=== PATIENT | female | born 1935 | race Caucasian/White ===

== ENCOUNTER 2017-07-30 11:30 | Emergency (ER) | payer OTHER ==
[~2017-07-30] VITALS: Ht 167.6 cm; Wt 86.2 kg
[~2017-07-30 11:30] MED LIST: CARVEDILOL12.5 MG PO; ELIQUIS2.5 MG PO; LISINOPRIL10 MG PO; NIFEDIPINE ER60 M1 PO; SORINE 80 MG TA80 M1 PO; XARELTO20 MG PO
[2017-07-30 12:10] LABS: URINE BILIRUBIN 2+ (Negative); URINE BLOOD 3+ (Negative); URINE CLARITY CLOUDY; URINE COLOR BROWN; URINE GLUCOSE-RANDOM NEGATIVE (Negative); URINE KETONES NEGATIVE (Negative); URINE LEUKOCYTES-REFLEX 2+ (Negative); URINE NITRITE-REFLEX POSITIVE (Negative); URINE PROTEIN 3+ (Negative); URINE SPECIFIC GRAVITY 1.025 (1.005-1.030)
[2017-07-30 12:11] LABS: ICTOTEST (BILI CONFIRMATORY) Negative (Negative)
[2017-07-30 12:14] LABS: BACTERIA-REFLEX >30 Many /HPF (None Seen); CASTS None Seen /LPF (None Seen); CRYSTALS None Seen /LPF (None Seen); SQUAMOUS 4-10 Moderate /LPF (0-3); URINE RBC >20 Many /HPF (0-2)
[2017-07-30] MEDS ORDERED: BACTRIM DS TAB1 EACH PO (12:14)
[2017-07-30 12:24] VITALS: BP 170/94
== END 2017-07-30 12:29 | disposition home or self-care (01) ==
LOC: M.ERS 11:30
PROVIDERS: Emergency Medicine Emergency Medical Services
DX: N30.80 Other cystitis without hematuria (principal); I10 Essential (primary) hypertension; Z90.49 Acquired absence of other specified parts of digestive tract; Z90.710 Acquired absence of both cervix and uterus; Z85.828 Personal history of other malignant neoplasm of skin

== ENCOUNTER → 2018-10-13 | Outpatient (CLI) | payer OTHER ==
[2018-10-13] VITALS (7 sets, daily range): BP systolic 156–165; BP diastolic 92–105
[~2018-10-13] MED LIST changes: +BACTRIM DS TAB1 EACH PO; +ELIQUIS5 MG PO
--- NOTE | ~2018-10-13 | CARD ---
[address] [address] CARDIAC CATH REPORT Name: ADRIANO AUGUST Room: [facility]#: [id number] Admission: 10/13/18 Attend Phys: Bart Knight MD Discharge: Date of : 39 Report #: [id number] THIS REPORT FOR: //name// CC: RADHA Knight Physician staff PROCEDURE: DC cardioversion. INDICATION: Persistent atrial flutter. DESCRIPTION OF PROCEDURE: After informed consent was obtained, the patient was brought to the cardiac holding area. The initial EKG showed atrial flutter with ventricularly paced rhythm. The patient was given intravenous Versed and fentanyl for adequate sedation. Once the patient was adequately sedated, she received a single biphasic shock of 300 joules, converting to sinus rhythm with ventricular pacing. The patient tolerated the procedure well, without complication. IMPRESSION: 1. Persistent atrial flutter. 2. Successful direct current cardioversion to sinus rhythm. By: 1133 [id number] Samreen Knight MD, [facility] /nt
[2018-10-13 10:19] LABS: HEMATOCRIT 45.8 % (37.0-47.0); HEMOGLOBIN 15.1 gm/dL (12.0-15.0); MCH 30.8 pg (26.0-34.0); MCHC 32.9 g/dL (28.0-37.0); MCV 93.7 fL (80.0-100.0); MPV 9.8 fl. (7.2-11.1); RBC 4.89 mil/uL (4.20-5.00); RDW-CV 15.7 % (10.5-14.5); WBC 7.1 thou/uL (4.0-11.0)
[2018-10-13 10:30] LABS: CALCIUM 8.9 mg/dL (8.5-10.1)
[2018-10-13 10:35] LABS: ALBUMIN 3.6 g/dL (3.4-5.0); TOTAL BILIRUBIN 1.2 mg/dL (<0.1-1.0)
--- NOTE | 2018-10-13 15:38 | EKG ---
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
--- NOTE | 2018-10-13 15:38 | EKG ---
[place] [address] ELECTROCARDIOGRAM REPORT Name: ADRIANO AUGUST Room: 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1935 Requested By: Bart Knight Order Number: [id number] Reading MD: Bart Knight Measurements Intervals [place] Rate: 64 P: 67 AR: 172 QRS: 265 QRSD: 186 T: 107 QT: 531 QTc: 548 Interpretive Statements Ventricular-paced complexes No further analysis attempted due to paced rhythm Compared to ECG 05/15/2017 08:19:11 Atrial fibrillation no longer present Electronically Signed On 10-13-2018 15:38:48 CDT by Bart Knight [email or web address] <ELECTRONICALLY SIGNED> By: Bart Knight MD, [facility] 10/13/18 1538 1041 1041 Bart Knight MD, FACC /EPI
== END | disposition home or self-care (01) ==
LOC: M.CL 09:50
PROVIDERS: Internal Medicine Cardiovascular Disease
DX: I48.92 Unspecified atrial flutter (principal); I10 Essential (primary) hypertension; Z79.01 Long term (current) use of anticoagulants; Z79.899 Other long term (current) drug therapy; Z85.828 Personal history of other malignant neoplasm of skin; Z90.710 Acquired absence of both cervix and uterus; Z90.49 Acquired absence of other specified parts of digestive tract; Z95.0 Presence of cardiac pacemaker

== ENCOUNTER → 2019-08-16 | Outpatient (CLI) | payer OTHER ==
[~2019-08-16] MED LIST changes: +CARDIZEM SR 60M60 MG PO; +LORTAB 5/325 PO; +PROCARDIA XL60 MG PO
[2019-08-16 11:57] VITALS: BP 162/95
[2019-08-16 12:09] LABS: HEMATOCRIT 43.8 % (37.0-47.0); HEMOGLOBIN 14.6 gm/dL (12.0-15.0); MCHC 33.3 g/dL (28.0-37.0); MCV 93.4 fL (80.0-100.0); MPV 9.4 fl. (7.2-11.1); RBC 4.69 mil/uL (4.20-5.00); RDW-CV 15.8 % (10.5-14.5); WBC 6.7 thou/uL (4.0-11.0)
[2019-08-16 12:16] VITALS: BP 161/99
[2019-08-16 12:17] LABS: ANION GAP 9 mmol/L (7-16); BUN 26 mg/dL (7-18); CALCIUM 8.8 mg/dL (8.5-10.1); CHLORIDE 108 mmol/L (98-107); CO2 27 mmol/L (21-32); GLUCOSE 106 mg/dL (70-99); POTASSIUM 3.9 mmol/L (3.5-5.1); SODIUM 144 mmol/L (136-145)
[2019-08-16 12:18] LABS: APTT 30.1 Seconds (25.0-31.3); INR 1.2; PROTIME 12.4 Seconds (9.20-11.50)
[2019-08-16 12:20] VITALS: BP 155/94
[2019-08-16 12:22] LABS: ALBUMIN 3.9 g/dL (3.4-5.0); ALKALINE PHOSPHATASE 48 U/L (46-116); CHOLESTEROL 122 mg/dL (<200); HDL CHOLESTEROL 42 mg/dL (>40); LDL CHOLESTEROL 65 mg/dL (<100); SGOT 33 U/L (15-37); SGPT 53 U/L (30-65); TC:HDL 2.9 Ratio (Not establshd); TOTAL BILIRUBIN 1.3 mg/dL (<0.1-1.0); TOTAL PROTEIN 7.3 g/dL (6.4-8.2); TRIGLYCERIDE 77 mg/dL (<150); VLDL 15 mg/dL (<40)
[2019-08-16 12:25] LABS: SERUM ASSESSMENT Clear
[2019-08-16 12:36] VITALS: BP 147/88
[2019-08-16 13:07] VITALS: BP 135/79
== END | disposition home or self-care (01) ==
LOC: M.CL 11:00
PROVIDERS: Internal Medicine Cardiovascular Disease
DX: I48.91 Unspecified atrial fibrillation (principal); Z79.01 Long term (current) use of anticoagulants; Z79.899 Other long term (current) drug therapy; Z98.890 Other specified postprocedural states

== ENCOUNTER → 2019-10-21 | Outpatient (CLI) | payer OTHER ==
[2019-10-21] VITALS (8 sets, daily range): BP systolic 136–158; BP diastolic 71–95
[~2019-10-21] MED LIST changes: +KLOR-CON 1010 MEQ PO; +LASIX 20 MG TAB20 MG PO
[2019-10-21 14:23] LABS: ALBUMIN 3.7 g/dL (3.4-5.0); DIRECT BILIRUBIN 0.2 mg/dL (<0.1-0.3); TOTAL BILIRUBIN 0.9 mg/dL (<0.1-1.0); TOTAL PROTEIN 6.7 g/dL (6.4-8.2)
--- NOTE | 2019-10-21 15:15 | CARD ---
[address] [address] CARDIAC CATH REPORT Name: ADRIANO AUGUST Naty Room: [facility]#: [id number] Admission: 10/21/19 Attend Phys: Bart Knight MD Discharge: Date of : 39 Report #: [id number] THIS REPORT FOR: //name// cc: CARROLL URIBE DO Physician not on staff ~ CC: CARROLL Knight Physician staff DATE OF SERVICE: 10/21/2019 PROCEDURE: Direct current cardioversion. INDICATION: Persistent atrial flutter/fibrillation. DESCRIPTION OF PROCEDURE: After informed consent was obtained, the patient was brought to the cardiac holding area. The patient was noted to be in atrial flutter with variable AV conduction. The patient was given 75 mg of intravenous fentanyl and 3 mg of intravenous Versed for conscious sedation. Once the patient was adequately sedated, she received a single biphasic shock of 300 joules. With this, she failed to convert to sinus rhythm. The patient received a second biphasic shock of 360 joules converting to normal sinus rhythm. The patient tolerated the procedure well without complication. IMPRESSION: 1. Persistent atrial fibrillation/flutter. 2. Successful direct current cardioversion to normal sinus rhythm. <ELECTRONICALLY SIGNED> By: Bart Knight MD, [facility] 10/21/19 1515 1426 1428[place] Samreen Knight MD, FACC /nt
--- NOTE | 2019-10-21 16:18 | EKG ---
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1935 Requested By: Bart Knight Order Number: [id number] Reading MD: Zain Hodgson Measurements Intervals [place] Rate: 66 P: 14 VA: 287 QRS: -62 QRSD: 188 T: 161 QT: 499 QTc: 523 Interpretive Statements Sinus rhythm supraventricular premature complex Prolonged VA interval Left bundle branch block Compared to ECG 10/13/2018 10:41:16 Ventricular-paced complex(es) or rhythm no longer present Electronically Signed On 10-21-2019 16:16:19 CDT by Zain Hodgson [email or web address] <ELECTRONICALLY SIGNED> By: Zain Hodgson MD, [facility] 10/21/19 1616 1226 1226 Zain Hodgson MD, [facility] /EPI
== END | disposition home or self-care (01) ==
LOC: M.CL 11:00
PROVIDERS: Internal Medicine Cardiovascular Disease
DX: I48.19 Other persistent atrial fibrillation (principal); I48.92 Unspecified atrial flutter; Z98.890 Other specified postprocedural states; Z79.01 Long term (current) use of anticoagulants; Z79.899 Other long term (current) drug therapy

== ENCOUNTER → 2020-04-04 | Outpatient (CLI) | payer OTHER ==
[2020-04-04] VITALS (9 sets, daily range): BP systolic 114–157; BP diastolic 73–93
--- NOTE | ~2020-04-04 | CARD ---
[facility] [address] [place] [address] CARDIAC CATH REPORT Name: ADRIANO AUGUST Room: [facility]#: [id number] Admission: 04/04/20 Attend Phys: Bart Knight MD Discharge: Date of : 39 Report #: [id number] THIS REPORT FOR: //name// cc: Trav Mcneill Jayme DO ~ CC: Trav Pablo DATE OF SERVICE: 04/04/2020 PROCEDURE: Direct current cardioversion. INDICATION: Recurrent atrial flutter with variable AV conduction. DESCRIPTION OF PROCEDURE: After informed consent was obtained, the patient was brought to the cardiac holding area. The patient was given intravenous Versed and fentanyl for conscious sedation. Once the patient was adequately sedated, she was cardioverted to an atrially sensed, ventricularly paced rhythm with a single biphasic shock of 300 joules. The patient tolerated the procedure well and without complication. DISPOSITION: 1. The patient was instructed to increase her amiodarone dose to 400 mg b.i.d. for 1 week and then 200 mg b.i.d. for a week, and then 200 mg daily. 2. She will follow up with us in the office in 1-2 weeks. By: 1635 [id number] Samreen Knight MD, FACC /nt
== END | disposition home or self-care (01) ==
LOC: M.CL 14:23
PROVIDERS: ATTEND Internal Medicine Cardiovascular Disease
DX: I48.92 Unspecified atrial flutter (principal); Z98.890 Other specified postprocedural states; Z79.899 Other long term (current) drug therapy; Z79.01 Long term (current) use of anticoagulants